=== PATIENT | female | born 2000 | race Caucasian/White ===

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

== ENCOUNTER → 2022-08-05 | Outpatient (CLI) | payer BC ==
[~2022-08-05] MED LIST changes: -DEXAMETHASONE SOD PHOSPHATE 4 MG/ML 1 ML VIAL IV ONE; -HEPARIN SODIUM,PORCINE/PF 5,000 UNIT/0.5 ML SYRINGE SQ PRN; -HYDROmorphone 0.5 MG/0.5 ML SYRINGE IVP PRN; +IRON SUCROSE 200 MG in SODIUM CHLORIDE 0.9% 100 ML IVPB NR; -LACTATED RINGERS 1,000 ML IV SCH; -LIDOCAINE 1% (10MG/ML) FOR IV START INTRADERMA PRN; -MIDAZOLAM 2 MG/2 ML VIAL IV PRN; -ONDANSETRON 4 MG/2 ML VIAL IVP ONE; +SODIUM CHLORIDE 0.9% 500 ML 500 ML in EMPTY BAG 1 BAG IV PRN; -fentaNYL (PF) 50 MCG/ML 2 ML AMP IVP PRN
[2022-08-05 09:56] VITALS: BP 139/84; PULSE 96; RESP 16; TEMP 97.7
== END ==
LOC: PROCWHC3 09:37
PROVIDERS: ATTEND Nurse Practitioner Adult Health
DX: D50.9 Iron deficiency anemia, unspecified (principal)
CPT/HCPCS: 96365; J1756

== ENCOUNTER → 2024-04-22 | Outpatient (CLI) | payer BC ==
--- NOTE | 2024-04-22 15:37 | USB ---
Reason for Exam: Clinical finding. Patient History: 07/02/2020, Benign Core Biopsy on the left side. Technique: Method: Targeted. Findings: The area of palpable concern of the left breast, the axilla of the left breast and the retroareolar of the left breast were scanned. Targeted ultrasound at the patient's left breast 8:00 position palpable site, 6 cm from the nipple demonstrates a lobulated oval circumscribed mass with through transmission measuring 2.5 x 2.4 x 1.2 cm. Likely fibroadenoma similar to the one excised at 11:00 in 2020. Given suspected benign etiology, three-month follow-up can be performed. In the meantime, surgical evaluation can be performed to determine if there is a desire to proceed with biopsy/excision. Slightly prominent but otherwise benign-appearing lymph node in the left axilla. Overall Assessment: Probably benign, BI-RAD 3 Management: Diagnostic Breast Ultrasound of the left breast in 3 months. Also, surgical evaluation to determinate if there is a desire to proceed with biopsy/excision versus surveillance. Patient with history of previous fibroadenoma excision at the 11:00 position in 2020. This also likely represents a fibroadenoma. A clinical breast exam by your physician is recommended on an annual basis and results should be correlated with mammographic findings. This exam should not preclude additional follow-up of suspicious palpable abnormalities. Results were given to the patient verbally at the time of exam. [facility], , 04/22/2024 3:33 PM. Electronically signed and approved by: Hari Stahl M.D. Radiologist
== END | disposition home or self-care (01) ==
LOC: RADUSWWP 14:52
PROVIDERS: ATTEND Family Medicine
DX: N63.20 Unspecified lump in the left breast, unspecified quadrant (principal)